=== PATIENT | male | born 1950 | race Caucasian/White ===

== ENCOUNTER → 2022-03-12 | Outpatient (CLI) | payer MEDICARE ==
--- NOTE | 2022-03-12 11:02 | US ---
EXAMINATION TYPE: US abdomen complete DATE OF EXAM: 03/12/2022 COMPARISON: NONE CLINICAL HISTORY: N20.0 CALCULUS OF KIDNEY. Left flank pain. Patient states he had a hx of a "golf b all" sized stone in left kidney. TECHNIQUE: Multiple sonographic images of the abdomen are obtained. FINDINGS: EXAM MEASUREMENTS: Liver Length: 14.3 cm Gallbladder Wall: 0.2 cm Spleen: 12.6 cm Right Kidney: 11.2 x 5.2 x 6.1 cm Left Kidney: 13.2 x 5.0 x 5.3 cm DIRECTOR OF PHYSICAL EDUCATION NOTES: Extremely limited and suboptimal exam due to bowel gas Pancreas: Obscured by bowel gas Liver: Limited, scanned through ribs. Gallbladder: On seen LLD due to bowel gas, no prominent stones seen Evidence for sonographic Enciso's sign: neg CBD: Obscured by overlying bowel gas Spleen: wnl Right Kidney: Multiple cysts seen, largest mid upper pole = 5.9 x 5.9 x 5.7 cm Left Kidney: Multiple stones visualized, largest = 1.5 cm. Upper IVC: Obscured by overlying bowel gas Abd Aorta: Proximal and mid portion obscured by overlying bowel gas. The upper IVC and proximal midportion of the abdominal aorta is obscured by overlying bowel gas. Limi lisa evaluation of liver is unremarkable. Gallbladder is within normal limits without evidence of wall thickening, pericholecystic fluid, or shadowing stones. Common bile duct is obscured by overlying sandrita wel gas. Spleen is within normal limits. Multiple cysts are demonstrated within the right kidney. Mul tiple stones demonstrated within the left kidney with largest measuring about 1.5 cm. No hydronephros is involving both kidneys. No solid lesions demonstrate within both kidneys. IMPRESSION: Limited examination due to overlying bowel gas. 1. No hydronephrosis. 2. Nonobstructive left renal calculi. 3. Right renal cysts.
== END | disposition home or self-care (01) ==
LOC: RADUSWWP 08:41
PROVIDERS: ATTEND Internal Medicine Geriatric Medicine
DX: N20.0 Calculus of kidney (principal); N28.1 Cyst of kidney, acquired
CPT/HCPCS: 76700

== ENCOUNTER → 2022-08-23 | Outpatient (CLI) | payer MEDICARE ==
[2022-08-23 16:57] LABS: African American GFR (CKD) 76 (>60 ml/min/1.73 sqM); Blood Urea Nitrogen 21 mg/dL (9-20); Non-African American GFR(CKD) 66 (>60 ml/min/1.73 sqM)
--- NOTE | 2022-08-24 12:43 | CT ---
EXAMINATION TYPE: CT abdomen wo/w con CT DLP: 1892.9 mGycm, Automated exposure control for dose reduction was used. DATE OF EXAM: 08/23/2022 6:12 PM COMPARISON: none CLINICAL INDICATION:Male, 71 years old with history of K42.9; Pain around umbilical hernia. TECHNIQUE: Axial CT of the abdomen with and without IV contrast. Sagittal and coronal reformats were created on a separate workstation. Contrast used:100 ml mL of Isovue 300 with IV Contrast, (none if empty) Oral contrast used: with Oral Contrast (none if empty) FINDINGS: LOWER CHEST: Coronary artery atherosclerosis. Mitral valve annular calcifications. ABDOMEN LIVER: Unremarkable GALLBLADDER AND BILE DUCTS: Unremarkable. PANCREAS: Unremarkable. SPLEEN: Unremarkable. ADRENAL GLANDS: Unremarkable. KIDNEYS AND URETERS: No evidence for right hydronephrosis. Right renal cyst present. Left renal calcu li which are nonobstructing. The largest measuring up to 8 mm. STOMACH AND BOWEL: No evidence of bowel obstruction. The appendix is normal. Small hiatal hernia. PERITONEUM/RETROPERITONEUM: No evidence of pneumoperitoneum or free fluid. VASCULATURE: Mild atherosclerotic calcifications are present throughout the abdominal aorta and its b ranches. No evidence of aortic aneurysm. MUSCULOSKELETAL: No acute osseous abnormalities. Mild disc degeneration changes are present throughou t the thoracolumbar spine. LYMPH NODES: No gross evidence for lymphadenopathy. SOFT TISSUE/ABDOMINAL WALL: Right lateral chest wall intramuscular lipoma measuring 3.3 x 1.8 cm. Fat -containing umbilical hernia measuring 2.1 cm at the neck. IMPRESSION: 1. Fat-containing umbilical hernia without evidence for bowel within the hernia itself. No evidence for complication within the hernia itself. 2. Nonobstructing left renal calculi. 3. Mitral valve valve annular calcifications and moderate coronary artery atherosclerosis. 4. No evidence for acute abdominal process. The appendix is normal. 5. Small hiatal hernia.
== END | disposition home or self-care (01) ==
LOC: RADCTMAIN 16:12
PROVIDERS: ATTEND Internal Medicine Geriatric Medicine
DX: K42.9 Umbilical hernia without obstruction or gangrene (principal); I25.10 Atherosclerotic heart disease of native coronary artery without angina pectoris; I34.81 Nonrheumatic mitral (valve) annulus calcification; K44.9 Diaphragmatic hernia without obstruction or gangrene; N20.0 Calculus of kidney
CPT/HCPCS: 82565; 84520; 74170; 36415; Q9967